=== PATIENT | female | born 1935 | race Caucasian/White ===

== ENCOUNTER 2017-11-21 14:17 | Outpatient (CLI) | payer MEDICARE, OTHER ==
--- NOTE | 2017-11-25 13:06 | Ultrasound Report ---
LEFT LEG ARTERIAL DUPLEX WITH ABIs: 11/21/2017 CLINICAL INDICATION: Left pain, diminished pedal pulses. TECHNIQUE: Real-time sonographic vascular imaging was performed by the qc chemist through the lower extremities utilizing both color-flow and Doppler spectral analysis. Multiple insurance account representative static images were saved for review. 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 There is no evidence of a focal velocity increase to suggest a hemodynamically significant arterial stenosis. ABIs are normal, measuring 1.05 bilaterally. IMPRESSION: NO EVIDENCE OF A HEMODYNAMICALLY SIGNIFICANT LEFT LEG ARTERIAL STENOSIS. NORMAL ABIS. TD: 11/21/2017 15:40 REVISED: REPORT ORIG. SIGNED ON 11/25/2017@1313; ORDERS LINKED ON 2017jll MTDD
== END 2017-11-21 14:18 | disposition home or self-care (01) ==
LOC: DI 14:17
PROVIDERS: ATTEND Registered Nurse
DX: M79.675 Pain in left toe(s) (principal)
CPT/HCPCS: 93922

== ENCOUNTER 2019-03-25 14:39 | Outpatient (CLI) | payer MEDICARE, OTHER ==
--- NOTE | 2019-03-27 18:13 | XRAY Report ---
Reason: PAIN IN LEFT KNEE Procedure Date: 03/25/2019 Accession Number: [id number] / [id number] Procedure: XRS - Knee 3 View LT CPT Code: FULL RESULT: EXAM: LEFT KNEE RADIOGRAPHY EXAM DATE: 03/25/2019 02:57 PM HISTORY: PAIN IN LEFT KNEE COMPARISON: None TECHNIQUE: AP, lateral and Merchant, 3 views . FINDINGS: There is moderate medial tibiofemoral compartment narrowing with small osteophyte formation. Mild subchondral cyst formation noted. Mild patellofemoral degenerative arthritis with slight joint space narrowing and spurring. Small joint effusion noted. Normal soft tissues. IMPRESSION: Moderate osteoarthritis and small joint effusion. No other significant abnormality. RADIA
== END 2019-03-25 14:40 | disposition home or self-care (01) ==
LOC: DI.S 14:39
PROVIDERS: ATTEND Physician Assistant
DX: M17.12 Unilateral primary osteoarthritis, left knee (principal)

== ENCOUNTER 2020-12-06 14:10 | Outpatient (CLI) | payer MEDICARE, OTHER ==
[2020-12-06 20:10] LABS: BASOPHILS % (AUTO) 0.7 %; EOSINOPHILS # (AUTO) 0.1 10^3/uL (0.0-0.7); EOSINOPHILS % (AUTO) 1.8 %; HCT - HEMATOCRIT 45.5 % (37.0-47.0); HGB - HEMOGLOBIN 15.3 g/dL (12.0-16.0); LYMPHOCYTES # (AUTO) 1.5 10^3/uL (1.5-3.5); MEAN CORPUSCULAR HEMOGLOBIN 31.2 pg (27.0-31.0); MEAN CORPUSCULAR HGB CONC 33.6 g/dL (32.0-36.0); MEAN CORPUSCULAR VOLUME 92.9 fL (81.0-99.0); MEAN PLATELET VOLUME 9.2 fL (7.9-10.8); MONOCYTES # (AUTO) 0.5 10^3/uL (0.0-1.0); MONOCYTES % (AUTO) 8.3 %; NEUTROPHILS # (AUTO) 3.3 10^3/uL (1.5-6.6); PLT - PLATELET COUNT 196 10^3/uL (130-450); RED CELL DISTRIBUTION WIDTH 13.7 % (12.0-15.0); WHITE BLOOD COUNT 5.4 x10^3/uL (4.8-10.8)
[2020-12-06 20:20] LABS: ALBUMIN 4.1 g/dL (3.2-5.5); ALBUMIN/GLOBULIN RATIO 1.6 (1.0-2.2); BILIRUBIN,TOTAL 0.8 mg/dL (0.2-1.0); CALCIUM 9.4 mg/dL (8.5-10.3); CREATININE 0.6 mg/dL (0.4-1.0); POTASSIUM 4.2 mmol/L (3.5-5.0); TOTAL PROTEIN 6.6 g/dL (6.7-8.2)
== END 2020-12-06 14:11 | disposition home or self-care (01) ==
LOC: LAB.S 14:10
DX: R41.81 Age-related cognitive decline (principal)
CPT/HCPCS: 36415; 80053; 82306; 84443; 85025

== ENCOUNTER 2021-04-18 16:56 | Outpatient (CLI) | payer MEDICARE, OTHER ==
[2021-04-18 19:46] LABS: BASOPHILS % (AUTO) 0.5 %; EOSINOPHILS # (AUTO) 0.2 10^3/uL (0.0-0.7); EOSINOPHILS % (AUTO) 2.5 %; HCT - HEMATOCRIT 48.1 % (37.0-47.0); LYMPHOCYTES # (AUTO) 1.4 10^3/uL (1.5-3.5); LYMPHOCYTES % (AUTO) 16.1 %; MEAN CORPUSCULAR HEMOGLOBIN 29.9 pg (27.0-31.0); MEAN CORPUSCULAR HGB CONC 33.3 g/dL (32.0-36.0); MEAN CORPUSCULAR VOLUME 89.9 fL (81.0-99.0); MEAN PLATELET VOLUME 9.6 fL (7.9-10.8); MONOCYTES # (AUTO) 0.9 10^3/uL (0.0-1.0); NEUTROPHILS % (AUTO) 70.5 %; PLT - PLATELET COUNT 288 10^3/uL (130-450); RED BLOOD COUNT 5.35 10^6/uL (4.20-5.40); RED CELL DISTRIBUTION WIDTH 13.2 % (12.0-15.0); WHITE BLOOD COUNT 8.5 x10^3/uL (4.8-10.8)
[2021-04-18 19:54] LABS: ALBUMIN 3.9 g/dL (3.2-5.5); ALBUMIN/GLOBULIN RATIO 1.3 (1.0-2.2); BILIRUBIN,TOTAL 1.3 mg/dL (0.2-1.0); CALCIUM 9.3 mg/dL (8.5-10.3); CREATININE 0.6 mg/dL (0.4-1.0); POTASSIUM 3.9 mmol/L (3.5-5.0); TOTAL PROTEIN 6.9 g/dL (6.7-8.2)
== END 2021-04-18 16:57 | disposition home or self-care (01) ==
LOC: LAB.S 16:56
PROVIDERS: ATTEND Physician Assistant
DX: R19.7 Diarrhea, unspecified (principal)
CPT/HCPCS: 36415; 80053; 85025

== ENCOUNTER 2021-10-10 11:04 | Emergency (ER) | payer MEDICARE, OTHER ==
[2021-10-10 11:21] VITALS: BP 142/92
--- NOTE | 2021-10-10 11:39 | XRAY Report ---
PROCEDURE: Wrist 4 View RT INDICATIONS: Trauma TECHNIQUE: 4 views of the wrist were acquired. COMPARISON: None. FINDINGS: BONES: Minimal cortical irregularity of the radial articular surface. The carpal bones are normally a ligned. Moderate to advanced degeneration of the triscaphe and lunocapitate articulations with sclero sis of the opposing articular surfaces. Mild to moderate narrowing of the radiocarpal articulation. SOFT TISSUES: No focal abnormality. IMPRESSION: 1.Minimal cortical irregularity of the radial articular surface, which may reflect a minimal displace d fracture. Reviewed by: Gregory Mendez MD on 10/10/2021 11:38 AM PDT Approved by: Gregory Mendez MD on 10/10/2021 11:38 AM PDT Station ID: [id number]
--- NOTE | 2021-10-10 13:04 | ED Physician Documentation ---
PD HPI UPPER EXT INJURY - Stated complaint Stated Complaint: R ARM PX - Chief complaint Chief Complaint: Trauma Ext - Additonal information Additional information: Patient is 86-year-old female presenting to the emergency department with right wrist pain. Accompanied by daughter who is present at bedside. Reports mechanical fall onto her right side 8 days ago. States had prominent bruising at that time. Denies any loss of consciousness or use of blood thinners. States the remainder of her bruises have resolved however she is having persistent pain in her right wrist which is what prompted her to come into the emergency department today. Review of Systems Ten Systems: 10 systems reviewed and negative Constitutional: denies: Fever Eyes: denies: Loss of vision Ears: denies: Loss of hearing Nose: denies: Rhinorrhea / runny nose Throat: denies: Dental pain / toothache Cardiac: denies: Chest pain / pressure GI: denies: Abdominal Pain : denies: Dysuria PD PAST MEDICAL HISTORY - Past Medical History Cardiovascular: None Respiratory: None Neuro: None Endocrine/Autoimmune: None GI: None BATCH ANALYST: None : None HEENT: None Psych: None Musculoskeletal: Osteoarthritis Derm: None - Past Surgical History Ortho: Hip replacement - Present Medications Home Medications: Ambulatory Orders Medication Instructions Recorded Confirmed No Known Home Medications 10/10/21 10/10/21 - Allergies Allergies/Adverse Reactions: Allergies Allergy/AdvReac Type Severity Reaction Status Date / Time codeine AdvReac Nausea Verified 10/10/21 11:16 - Social History Does the pt smoke?: No Smoking Status: Never smoker Does the pt have substance abuse?: No - Immunizations Immunizations are current?: Yes PD ED PE NORMAL - General General: Alert and oriented X 3, No acute distress, Other (Hard of hearing) - HEENT HEENT: Atraumatic, PERRL - Neck Neck: Supple, no meningeal sign - Cardiac Cardiac: RRR, No gallop - Respiratory Respiratory: No respiratory distress, Clear bilaterally - Abdomen Abdomen: Normal bowel sounds, Soft, Non tender - Extremities Extremities: Other (Tenderness to palpation along the right wrist. There is prominent ecchymosis on the ventral side of the arm. Decreased range of motion of the right wrist. Strong palpable radial and ulnar pulses. Normal sensation distal to the site of injury.) Results - Vitals Vitals: Vital Signs - 24 hr 10/10/21 11:16 Temperature 36 C L Heart Rate 68 Respiratory 18 Rate Blood Pressure 142/92 H O2 Saturation 99 Oxygen O2 Source Room air PD MEDICAL DECISION MAKING - ED course Complexity details: reviewed results, d/w patient ED course: Patient is 86-year-old female presenting with right wrist pain after fall that occurred 8 days ago. Afebrile, hemoglobin stable on arrival to the emergency department. Ecchymosis, soft tissue swelling, tenderness to palpation and decreased range of motion appreciated at the right wrist. Strong pulses and no indications of neurovascular compromise. X-ray positive for possible intra- articular fracture of the radius. Patient provided with splint in the emergency department. Will discharge with follow-up with orthopedics. Otherwise clear return precautions and follow-up instructions given prior to discharge. Departure - Departure Disposition: 01 Home, Self Care Clinical Impression: Fracture of radius Instructions: ED Fx Upper Ext Follow-Up: Berry Barrera MD [Provider Admit Priv/Credential] - Comments: Thank you for allowing us to care for you today at [facility]. The x-rays taken today showed an area of irregularity possibly demonstrating a fracture to your radius, one of the larger bones that makes up your forearm. Would like you to continue to use the splint provided here in the emergency department until you are cleared by the your primary care doctor or by an contract negotiation specialist. Please contact your primary care doctor today in order to make an appointment for medical recheck. I have also included contact information for a local area orthopedist to you can contact as needed. Tylenol is an excellent medication to take at home for pain control. I also recommend ice packs and keeping the injured extremity elevated as much as possible as this will help decrease swelling and thereby decrease pain. If anytime you develop any new or worsening symptoms please not hesitate to return to the emergency department. Discharge Date/Time: 10/10/21 14:15
== END 2021-10-10 14:15 | disposition home or self-care (01) ==
LOC: ED 11:04
DX: S52.91XA Unspecified fracture of right forearm, initial encounter for closed fracture (principal); W18.39XA Other fall on same level, initial encounter
CPT/HCPCS: 99283; 99284

== ENCOUNTER 2021-10-18 15:42 | Outpatient (CLI) | payer MEDICARE, OTHER | END 2021-10-18 15:43 | disposition critical access hospital (66) | LOC: EMS 15:42 | DX: S00.83XA Contusion of other part of head, initial encounter (principal); W10.8XXA Fall (on) (from) other stairs and steps, initial encounter; Y92.008 Other place in unspecified non-institutional (private) residence as the place of occurrence of the external cause | CPT/HCPCS: A0425; A0429 ==

== ENCOUNTER 2021-10-18 16:29 | Emergency (ER) | payer MEDICARE, OTHER ==
[2021-10-18] MEDS ORDERED: TETANUS/DIPHTHERIA/PERTUSSIS 0.5 ML SYRINGE IM ONE (16:34)
--- NOTE | 2021-10-18 16:36 | ED Physician Documentation ---
PD HPI HEAD INJURY - Stated complaint Stated Complaint: GLF - History obtained from History obtained from: Patient, EMS - Additional information Additional information: 86-year-old woman tripped and fell in her driveway landing face first hitting her forehead on the ground. Also scraped her left hand and bruised her knees. No loss of consciousness. Declines pain medication. Not anticoagulated. Review of Systems Constitutional: reports: Reviewed and negative Eyes: reports: Reviewed and negative Ears: reports: Reviewed and negative Nose: reports: Reviewed and negative PD PAST MEDICAL HISTORY - Past Medical History Cardiovascular: None Respiratory: None Neuro: None Endocrine/Autoimmune: None GI: None NEONATOLOGIST: None : None HEENT: None Psych: None Musculoskeletal: Osteoarthritis Derm: None - Past Surgical History Ortho: Hip replacement - Present Medications Home Medications: Ambulatory Orders Medication Instructions Recorded Confirmed No Known Home Medications 10/10/21 10/18/21 - Allergies Allergies/Adverse Reactions: Allergies Allergy/AdvReac Type Severity Reaction Status Date / Time glucosamine Allergy Unknown Verified 10/18/21 16:38 codeine AdvReac Nausea Verified 10/18/21 16:38 - Social History Does the pt smoke?: No Smoking Status: Never smoker Does the pt have substance abuse?: No - Immunizations Immunizations are current?: Yes PD ED PE NORMAL - Vitals Vital signs reviewed: Yes - General General: Alert and oriented X 3, No acute distress - HEENT HEENT: PERRL, EOMI, Other (Abrasion with some swelling on the right side of the forehead, no facial bony tenderness.) - Neck Neck: Supple, no meningeal sign, No bony TTP, C-Spine cleared by NEXUS criteria (But will CT given advanced age) - Extremities Extremities: Other (Some abrasions on the left fingertips, no tenderness. She is somewhat tender on the medial and lateral joint Lines of the right knee. Other joints are nontender.) - Neuro Neuro: Alert and oriented X 3, Normal speech Eye Opening: Spontaneous Motor: Obeys Commands Verbal: Oriented GCS Score: 15 - Psych Psych: Normal mood, Normal affect Results - Vitals Vitals: Vital Signs - 24 hr 10/18/21 16:31 Temperature 36.4 C L Heart Rate 70 Respiratory 19 Rate Blood Pressure 166/90 H O2 Saturation 95 Oxygen O2 Source Room air - Rads (name of study) CT of the head, cervical spine, and right knee x-ray Radiology: EMP read contemporaneously (Right subgaleal hematoma, otherwise negative for acute trauma) Departure - Departure Disposition: 01 Home, Self Care Clinical Impression: Head injury Qualifiers: Encounter type: initial encounter Qualified Code(s): S09.90XA - Unspecified injury of head, initial encounter Forehead abrasion Qualifiers: Encounter type: initial encounter Qualified Code(s): S00.81XA - Abrasion of other part of head, initial encounter Abrasion of left hand Qualifiers: Encounter type: initial encounter Qualified Code(s): S60.512A - Abrasion of left hand, initial encounter Contusion of right knee Qualifiers: Encounter type: initial encounter Qualified Code(s): S80.01XA - Contusion of right knee, initial encounter Condition: Good Record reviewed to determine appropriate education?: Yes Instructions: ED Head Injury Closed, ED Abrasion Comments: CAT scan of the head and neck and right knee x-ray were unremarkable from a traumatic standpoint. There is a lot of arthritic change. For the wounds you can wash all of them with soap and water and then just keep the bigger ones covered with Band-Aids. Return for new or worsening symptoms. Follow-up with your doctor in a week for recheck. Tylenol as needed for pain per package instructions.
--- NOTE | 2021-10-18 16:59 | XRAY Report ---
PROCEDURE: Knee 4 View RT INDICATIONS: knee inj TECHNIQUE: 4 views of the right knee(s) were acquired. COMPARISON: None. FINDINGS: Bones: No fractures or dislocations. No suspicious bony lesions. Mild tricompartment periareolar a rticular osteophyte formation. Soft tissues: No joint effusion. No suspicious soft tissue calcifications. IMPRESSION: Osteoarthritis. No acute fracture. No osseous lesion. If symptoms and/or clinical suspic ion for pathology continue, further assessment with repeat plain films, or advanced imaging (e.g., CT , MRI, or bone scan) is recommended for further assessment. Reviewed by: Mariaa Taylor MD on 10/18/2021 4:58 PM PDT Approved by: Mariaa Taylor MD on 10/18/2021 4:58 PM PDT Station ID: [id number]
--- NOTE | 2021-10-18 17:12 | CT Report ---
PROCEDURE: HEAD WO INDICATIONS: head inj TECHNIQUE: Noncontrast 4.5 mm thick angled axial sections acquired from the foramen magnum to the vertex. For r adiation dose reduction, the following was used: automated exposure control, adjustment of mA and/or kV according to patient size. COMPARISON: None. FINDINGS: Image quality: Excellent. CSF spaces: Basal cisterns are patent. No extra-axial fluid collections. Ventricles are normal in size and shape. Brain: No midline shift. No intracranial masses or hemorrhage. Lyons-white matter interface is norm al. Age-related volume loss and moderate small vessel ischemic change. Skull and face: Calvarium and visualized facial bones are intact, without suspicious lesions. Right forehead subgaleal hematoma. Sinuses: Visualized sinuses and mastoids are clear. IMPRESSION: Right forehead subgaleal hematoma. Age-related volume loss and small vessel ischemic nicci nge. No evidence of acute intracranial abnormality. Reviewed by: David Doyle MD on 10/18/2021 5:10 PM PDT Approved by: David Doyle MD on 10/18/2021 5:10 PM PDT Station ID: [id number]
--- NOTE | 2021-10-18 17:13 | CT Report ---
PROCEDURE: CERVICAL SPINE WO INDICATIONS: head inj TECHNIQUE: Noncontrast 3 mm thick sections acquired from the skull base to the T4 level. Sagittal and coronal r eformats were then constructed. For radiation dose reduction, the following was used: automated exp osure control, adjustment of mA and/or kV according to patient size. COMPARISON: None. FINDINGS: Image quality: Excellent. Bones: No fractures or dislocations. Visualized superior ribs are intact. Severe cervical spondylit ic change. Soft tissues: Prevertebral soft tissues are normal in thickness. No paravertebral hematomas. No ap ical pneumothoraces. IMPRESSION: 1. No evidence of acute cervical fracture or dislocation. 2. Severe cervical spondylitic change. Reviewed by: David Doyle MD on 10/18/2021 5:11 PM PDT Approved by: David Doyle MD on 10/18/2021 5:11 PM PDT Station ID: [id number]
[2021-10-18 17:24] VITALS: BP 165/89
== END 2021-10-18 17:28 | disposition home or self-care (01) ==
LOC: EDUNIT# → ED 16:29
DX: S09.90XA Unspecified injury of head, initial encounter (principal); S00.81XA Abrasion of other part of head, initial encounter; S60.512A Abrasion of left hand, initial encounter; S80.01XA Contusion of right knee, initial encounter; W01.0XXA Fall on same level from slipping, tripping and stumbling without subsequent striking against object, initial encounter; Y92.007 Garden or yard of unspecified non-institutional (private) residence as the place of occurrence of the external cause; Z23 Encounter for immunization; Z71.85 Encounter for immunization safety counseling
CPT/HCPCS: 90471; 99282; 99284

== ENCOUNTER 2021-10-26 08:00 | Outpatient (CLI) | payer MEDICARE, OTHER ==
--- NOTE | 2021-10-26 17:09 | XRAY Report ---
PROCEDURE: Wrist 3 View RT INDICATIONS: RIGHT WRIST FRACTURE TECHNIQUE: 3 views of the wrist were acquired. COMPARISON: 10/10/2021. FINDINGS: Bones: Comminuted, intra-articular fracture of the distal radius. There is widening of the scapholuna te interval concerning for scapholunate ligament injury. Soft tissues: No suspicious soft tissue calcifications. IMPRESSION: Comminuted, and reticular distal radius fracture. Probable scapholunate ligament tear. Recommend MRI of the wrist for additional evaluation. Reviewed by: Destiny Amaya MD, PhD on 10/26/2021 5:07 PM PDT Approved by: Destiny Amaya MD, PhD on 10/26/2021 5:07 PM PDT Station ID: [id number]
== END 2021-10-26 23:59 | disposition home or self-care (01) ==
LOC: DI.S 08:00
PROVIDERS: ATTEND Registered Nurse
DX: S52.591A Other fractures of lower end of right radius, initial encounter for closed fracture (principal); R93.6 Abnormal findings on diagnostic imaging of limbs; R93.89 Abnormal findings on diagnostic imaging of other specified body structures

== ENCOUNTER 2021-11-07 06:00 | Outpatient (CLI) | payer MEDICARE, OTHER ==
--- NOTE | 2021-11-07 13:12 | XRAY Report ---
PROCEDURE: Wrist 3 View RT INDICATIONS: RIGHT WRIST FRACTURE TECHNIQUE: 3 views of the wrist were acquired. COMPARISON: X-ray right wrist, 10/26/2021, 10/18/2021 and 10/10/2021. FINDINGS: Bones: There is a comminuted fracture in distal radial metaphysis with intra-articular involvement. M ild step-off of articular surface is seen. The alignment is stable. Mild wedging of scapholunate inte rval. Degenerative joint disease in right wrist. There is osteopenia. Soft tissues: No suspicious soft tissue calcifications. IMPRESSION: 1. Comminuted distal radial metaphyseal fracture with stable alignment. 2. Mild widening of scapholunate scapholunate interval suggesting scapholunate ligament tear. 3. Moderate degenerative joint disease. Reviewed by: Anna Frank MD on 11/07/2021 1:11 PM PDT Approved by: Anna Frank MD on 11/07/2021 1:11 PM PDT Station ID: [id number]
--- NOTE | 2021-11-07 13:30 | XRAY Report ---
PROCEDURE: Elbow 3 View RT INDICATIONS: RIGHT ELBOW PAIN TECHNIQUE: 3 views of the elbow were acquired. COMPARISON: None. FINDINGS: BONES/JOINT: No acute, displaced fracture or dislocation. No appreciable joint effusion. Osteophytosi s of the coronoid process as well as the medial/lateral epicondyles. SOFT TISSUES: No focal abnormality. IMPRESSION: 1.No acute osseous abnormality of the elbow. Reviewed by: Gregory Mendez MD on 11/07/2021 1:29 PM PDT Approved by: Gregory Mendez MD on 11/07/2021 1:29 PM PDT Station ID: [id number]
== END 2021-11-07 23:59 | disposition home or self-care (01) ==
LOC: DI.WOS 06:00
PROVIDERS: ATTEND Physician Assistant
DX: S52.571D Other intraarticular fracture of lower end of right radius, subsequent encounter for closed fracture with routine healing (principal); M19.031 Primary osteoarthritis, right wrist; M25.521 Pain in right elbow

== ENCOUNTER 2022-07-31 22:59 | Outpatient (CLI) | payer MEDICARE, OTHER | END 2022-07-31 23:00 | disposition EMS.NT | LOC: EMS 22:59 | DX: R53.1 Weakness (principal) ==

== ENCOUNTER 2023-06-12 11:07 | Emergency (ER) | payer MEDICARE, OTHER ==
[2023-06-12 12:03] VITALS: O2SAT 98
--- NOTE | 2023-06-12 12:30 | ED Physician Documentation ---
PD HPI Fall - Stated complaint Stated Complaint: GLF,HEAD INJ,WEAKNESS - Chief complaint Chief Complaint: Trauma Hd/Nk - History obtained from History obtained from: Patient - History of Present Illness Mechanism of injury: Tripped, Lost balance Fall distance: Standing position Timing - onset: Today Associated symptoms: No: LOC, AMS, Nausea / vomiting Contributing factors: No: Anticoagulated Similar symptoms before: No diagnosis (does have blaance problem and stumbles easily.) Review of Systems Eyes: denies: Loss of vision, Decreased vision Skin: reports: Abrasion (s). denies: Laceration (s) Neurologic: reports: Headache, Head injury. 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 : None HEENT: Chronic hearing loss Psych: None Musculoskeletal: Osteoarthritis Derm: None - Past Surgical History Past Surgical History: Yes General: Appendectomy Ortho: Hip replacement - Present Medications Home Medications: Ambulatory Orders Medication Instructions Recorded Confirmed Aspirin EC [Ecotrin] 81 mg PO DAILY 06/12/23 06/12/23 - Allergies Allergies/Adverse Reactions: Allergies Allergy/AdvReac Type Severity Reaction Status Date / Time glucosamine Allergy Unknown Verified 06/12/23 11:33 codeine AdvReac Nausea Verified 06/12/23 11:33 - Social History Does the pt smoke?: No Smoking Status: Never smoker Does the pt drink ETOH?: Yes ETOH Use: Wine Does the pt have substance abuse?: No - Immunizations Immunizations are current?: Yes PD ED PE NORMAL - Vitals Vital signs reviewed: Yes - General General: Alert and oriented X 3, No acute distress, Well developed/nourished - HEENT HEENT: PERRL, EOMI (no diplopia.), Other (early bruising of forehead and right cheek. No noted bony deformity to visual/palpation. ) - Neck Neck: Supple, no meningeal sign, No bony TTP, Other (has some tenderness in mid to lower cervical area without obvious deformity. Given age and mechanism, ceertainly concerned about fracture. ) Results - Vitals Vitals: Oxygen O2 Source Room air - Labs Labs: Laboratory Tests 06/12/23 06/12/23 13:04 13:04 WBC 10.1 RBC 5.39 Hgb 16.4 H Hct 50.1 H MCV 92.9 MCH 30.4 MCHC 32.7 RDW 14.0 Plt Count 216 MPV 8.5 Neut # (Auto) 8.4 H Lymph # (Auto) 0.7 L Traill # (Auto) 0.8 Eos # (Auto) 0.0 Baso # (Auto) 0.0 Absolute Nucleated RBC 0.00 Nucleated RBC % 0.0 Sodium 137 Potassium 3.8 Chloride 101 Carbon Dioxide 28 Anion Gap 8.0 BUN 8 Creatinine 0.5 L Estimated GFR (MDRD) 116 Glucose 109 H Calcium 9.4 Magnesium 1.8 Total Bilirubin 0.9 AST 62 H ALT 23 Alkaline Phosphatase 68 Total Protein 6.5 Albumin 3.7 Globulin 2.8 Albumin/Globulin Ratio 1.3 Lipase 12 - Rads (name of study) head CT Relevant Findings:: Prelim report reviewed (n o fracture, no ICH), EMP independent interpretation of test cervical CT Relevant Findings:: Prelim report reviewed (arthritic changes, no fractures. ), EMP independent interpretation of test facial CT Relevant Findings:: Prelim report reviewed (n o fractures. some maxillary sinus fluid c/w sinusitis. ), EMP independent interpretation of test PD Medical Decision Making - ED course Complexity details: reviewed results ( no fractures, no ICH. Mild fluid in maxillary sinuses but has not had sinusitis symptoms per se. ), considered differential (accidental fall without preceding symptoms, with facial injury and neck pain. CT face/head/neck withoout fractures/bleeding. ), d/w patient Departure - Departure Disposition: 01 Home, Self Care Clinical Impression: Balance problem, Fall from slip, trip, or stumble, Facial contusion, Acute strain of neck muscle Condition: Stable Record reviewed to determine appropriate education?: Yes Comments: Your CT scans of the face head and neck do not show any acute injuries. There is arthritis shown in the neck. There is a little bit of fluid in one of the sinuses on the face but no signs of fractures or bleeding or other acute injury. We did do basic blood tests of a CBC/blood count and a chemistry panel and no acute notable abnormalities. He can use some cool towels or ice to the face for swelling periodically. It looks like some of the swelling is going down already. Tylenol 500 to 650 mg every 4-6 hours if needed for pains. Continue your other usual medicines. Forms: PCP List Discharge Date/Time: 06/12/23 15:33
[2023-06-12] MEDS ORDERED: ACETAMINOPHEN 325 MG TABLET PO STA (12:51)
[2023-06-12 13:07] LABS: BASOPHILS % (AUTO) 0.4 %; EOSINOPHILS % (AUTO) 0.1 %; HCT - HEMATOCRIT 50.1 % (37.0-47.0); HGB - HEMOGLOBIN 16.4 g/dL (12.0-16.0); LYMPHOCYTES # (AUTO) 0.7 10^3/uL (1.5-3.5); LYMPHOCYTES % (AUTO) 7.1 %; MEAN CORPUSCULAR HEMOGLOBIN 30.4 pg (27.0-31.0); MEAN CORPUSCULAR HGB CONC 32.7 g/dL (32.0-36.0); MEAN CORPUSCULAR VOLUME 92.9 fL (81.0-99.0); MEAN PLATELET VOLUME 8.5 fL (7.9-10.8); MONOCYTES # (AUTO) 0.8 10^3/uL (0.0-1.0); MONOCYTES % (AUTO) 8.2 %; NEUTROPHILS # (AUTO) 8.4 10^3/uL (1.5-6.6); NEUTROPHILS % (AUTO) 83.8 %; PLT - PLATELET COUNT 216 10^3/uL (130-450); RED BLOOD COUNT 5.39 10^6/uL (4.20-5.40); WHITE BLOOD COUNT 10.1 x10^3/uL (4.8-10.8)
[2023-06-12 13:31] LABS: ALBUMIN 3.7 g/dL (3.2-5.5); ALBUMIN/GLOBULIN RATIO 1.3 (1.0-2.2); BILIRUBIN,TOTAL 0.9 mg/dL (0.2-1.0); CALCIUM 9.4 mg/dL (8.5-10.3); CREATININE 0.5 mg/dL (0.6-1.3); MAGNESIUM 1.8 mg/dL (1.7-2.3); POTASSIUM 3.8 mmol/L (3.5-4.5); TOTAL PROTEIN 6.5 g/dL (6.4-8.9)
--- NOTE | 2023-06-12 14:58 | CT Report ---
PROCEDURE: HEAD WO INDICATIONS: fall, struck face; face/neck/head pain TECHNIQUE: Noncontrast 4.5 mm thick angled axial sections acquired from the foramen magnum to the vertex. For r adiation dose reduction, the following was used: automated exposure control, adjustment of mA and/or kV according to patient size. COMPARISON: None. FINDINGS: Image quality: Excellent. CSF spaces: Basal cisterns are patent. No extra-axial fluid collections. Ventricles are normal in size and shape. Brain: No midline shift. No intracranial masses or hemorrhage. Lyons-white matter interface is norm al. Age-related volume loss. Moderate small vessel ischemic change. Intracranial carotid and vertebr al artery calcifications. Skull and face: Calvarium and visualized facial bones are intact, without suspicious lesions. Sinuses: Minimal bilateral maxillary sinus air-fluid levels. IMPRESSION: 1. No acute intracranial process. 2. Age-related volume loss and small vessel ischemic change. 3. Minimal bilateral maxillary sinus disease. Reviewed by: David Doyle MD on 06/12/2023 2:57 PM PST Approved by: David Doyel MD on 06/12/2023 2:57 PM PST Station ID: [id number]
--- NOTE | 2023-06-12 15:00 | CT Report ---
PROCEDURE: CERVICAL SPINE WO INDICATIONS: fall, struck face/ head,neck,face pain TECHNIQUE: Noncontrast 3 mm thick sections acquired from the skull base to the T4 level. Sagittal and coronal r eformats were then constructed. For radiation dose reduction, the following was used: automated exp osure control, adjustment of mA and/or kV according to patient size. COMPARISON: None. FINDINGS: Image quality: Excellent. Bones: No fractures or dislocations. Visualized superior ribs are intact. Advanced diffuse spondyl itic change. There is severe bilateral C1-C2 facet arthritis. There is subchondral cyst formation in the tip of the dens. These findings can be related to an inflammatory arthritis. There is extensive b ilateral cervical facet arthritis. There is trace anterolisthesis of C3 on C4. There is severe bony f oraminal narrowing bilaterally at C4-C5 and C5-C6. Soft tissues: Prevertebral soft tissues are normal in thickness. No paravertebral hematomas. No ap ical pneumothoraces. IMPRESSION: 1. No acute cervical fracture or dislocation. 2. Advanced cervical spondylitic change. Reviewed by: David Doyle MD on 06/12/2023 2:59 PM PST Approved by: David Doyle MD on 06/12/2023 2:59 PM PST Station ID: [id number]
--- NOTE | 2023-06-12 15:03 | CT Report ---
PROCEDURE: MAXILLOFACIAL WO INDICATIONS: fall, struck face; head,neck,face pain TECHNIQUE: Noncontrast 1.5 mm thick axial images acquired from the mandible through the frontal sinuses, with co quiana and sagittal reformatting. For radiation dose reduction, the following was used: automated ex posure control, adjustment of mA and/or kV according to patient size. COMPARISON: CT head from the same date, CT cervical spine from the same date. FINDINGS: Image quality: Excellent. Bones and teeth: Orbital jenkins are intact. Sinus jenkins show no fracture or deformity. Nasal bones and septum are intact. Visualized portions of the mandible demonstrate no fractures or subluxation. Bilateral TMJ degenerative arthritis. Zygomatic arches are intact. Pterygoid plates are intact. Vis ualized portions of the skull base and auditory canals are intact. Advanced cervical spondylosis. Sinuses: Trace bilateral maxillary sinus fluid. Paranasal sinuses are otherwise aerated, without flu id levels, mucosal thickening, or mucoceles. Mastoid air cells are aerated. Soft tissues: No edema, masses, or fluid collections. No enlarged lymph nodes. No soft tissue lace rations or debris. Vascular: Visualized vascular structures appear normal in the absence of contrast. Bony vascular fo ramina and canals are intact. IMPRESSION: 1. No evidence of displaced facial bone fracture or mandibular fracture. 2. Advanced cervical spondylosis. 3. Bilateral TMJ degenerative arthritis. 4. Trace air-fluid levels in the maxillary sinuses consistent with very mild acute sinusitis. Reviewed by: David Doyle MD on 06/12/2023 3:02 PM PST Approved by: David Doyle MD on 06/12/2023 3:02 PM PST Station ID: [id number]
[2023-06-12 15:33] VITALS: BP 128/102
== END 2023-06-12 15:33 | disposition home or self-care (01) ==
LOC: ED 11:07
DX: S16.1XXA Strain of muscle, fascia and tendon at neck level, initial encounter (principal); S13.9XXA Sprain of joints and ligaments of unspecified parts of neck, initial encounter; S00.83XA Contusion of other part of head, initial encounter; W01.0XXA Fall on same level from slipping, tripping and stumbling without subsequent striking against object, initial encounter; R26.81 Unsteadiness on feet
CPT/HCPCS: 36415; 70450; 70486; 72125; 80053; 83690; 83735; 85025; 99284; A9270